=== PATIENT | female | born 1970 | race Two or more races ===

== ENCOUNTER 2024-03-30 16:59 | Emergency (ER) | payer MEDICAID, SELFPAY ==
[2024-03-30 17:01] VITALS: BMI 32.9
[2024-03-30 17:44] VITALS: BP 132/86; PULSE 91; RESP 18; TEMP 36.9; O2SAT 96
--- NOTE | 2024-03-30 17:51 | PD.EDRME ---
Rapid Medical Screening Exam RME Arrival date/time: 03/30/24 16:59 This is a 54-year-old female presents the emergency department with complaints of dizziness recently has had nausea vomiting diarrhea patient feels dehydrated. I have greeted and performed a focused initial assessment of this patient. Initial appropriate labs ordered at this time. A comprehensive ED assessment and evaluation of the patient and analysis of all test and completion of medical decision making process will be conducted by additional ED provider. Chief Complaint: Dizziness Time Seen by Provider: 03/30/24 17:42 Vital signs: Vital Signs Temperature 98.5 F 03/30/24 17:44 Pulse Rate 91 03/30/24 17:44 Respiratory Rate 18 03/30/24 17:44 Blood Pressure 132/86 H 03/30/24 17:44 Pulse Oximetry (%) 96 03/30/24 17:44 Oxygen Delivery Method Room Air 03/30/24 17:44
[2024-03-30 18:03] LABS: Basophils # (Auto) 0.1 Thou/mm3 (0.0-0.2); Basophils % (Auto) 1 % (0-2.5); Eosinophils # (Auto) 0.1 Thou/mm3 (0.0-0.5); Eosinophils % (Auto) 1 % (0-10); Hematocrit 45.8 % (36.0-46.0); Immature Granulocytes % (Auto) 0 % (0-0); Immature Granulocytes Auto 0.03 Thou/mm3 (0.00-0.00); Lymphocytes # (Auto) 2.4 Thou/mm3 (1.0-4.8); Lymphocytes % (Auto) 21 % (10-50); Mean Corpuscular HGB Conc 34.9 g/dl (31.0-37.0); Mean Corpuscular Hemoglobin 30.6 pg (25.0-35.0); Mean Corpuscular Volume 88 fL (80-100); Monocytes # (Auto) 0.9 Thou/mm3 (0.0-0.8); Monocytes % (Auto) 8 % (0-12); Neutrophils # (Auto) 8.3 Thou/mm3 (1.8-7.7); Neutrophils % (Auto) 70 % (37-80); Nucleated Red Blood Cell % 0 /100 WBC (0); Platelet Count 272 Thou/mm3 (140-440); RDW Standard Deviation 41.2 fL (36.4-46.3); Red Blood Count 5.23 Miln/mm3 (4.00-5.20); White Blood Count 11.7 Thou/mm3 (3.6-11.0)
[2024-03-30 18:31] LABS: Alanine Aminotransferase 52 U/L (10-49); Albumin/Globulin Ratio 1.5 (1.2-2.2); Alkaline Phosphatase 127 U/L (46-116); Anion Gap 11 (7-16); Aspartate Amino Transferase 41 U/L (0-34); BUN/Creatinine Ratio 29 Ratio (12-20); Blood Urea Nitrogen 38 mg/dL (9-23); Calcium 9.9 mg/dL (8.3-10.6); Calcium (Corrected) 9.9 mg/dL (8.5-10.1); Carbon Dioxide 32.8 mMol/L (20.0-31.0); Chloride 95 mMol/L (98-107); Creatinine (Component) 1.3 mg/dL (0.6-1.3); Globulin 3.3 gm/dL (2.3-3.5); Glucose 125 mg/dL (74-106); Lipase 60 U/L (12-53); Osmolality,Calculated 287 (275-295); Potassium 3.5 mMol/L (3.4-5.1); Sodium 139 mMol/L (136-145); Total Protein 8.3 gm/dL (5.7-8.2); eGFR 49 See Note
[2024-03-30 18:44] LABS: Collection Type, Urine Clean Catch
[2024-03-30 18:55] LABS: HCG Qualitative,Urine Negative
[2024-03-30 18:59] LABS: Bilirubin,Urine Negative (Negative); Blood,Urine 1+ (Negative); Clarity,Urine Clear (Clear/Hazy); Color,Urine Yellow (Lt Yel-Yel); Glucose, Urine Negative (Negative); Hyaline Casts,Urine < 1 /hpf (0-1); Ketones,Urine Negative (Negative); Leukocyte Esterase,Urine Positive (Negative); Nitrite,Urine Negative (Negative); Protein,Urine 2+ (Neg - Trace); RBC,Urine 2 /hpf (0-3); Specific Gravity,Urine 1.023 (1.001-1.035); Squamous Epithelial Cell,Urine 2 /hpf (0-5); Urobilinogen,Urine Negative mg/dL (0.0-1.0); WBC,Urine 6 /hpf (0-5)
[2024-03-30] MEDS: SODIUM CHLORIDE 0.9% 1000 ML 1,000 ML 999 ML IV (20:44)
--- NOTE | 2024-03-30 21:13 | PD.EDDIZZY ---
ED Dizzyness RME/HPI General Chief Complaint: Dizziness Stated Complaint: Syncopal episode, dizziness, chills, NV Time Seen by Provider: 03/30/24 17:42 Arrival date/time: 03/30/24 16:59 RME / HPI RME / HPI Narrative: 03/30/24 16:59 This is a 54-year-old female presents the emergency department with complaints of dizziness recently has had nausea vomiting diarrhea patient feels dehydrated. I have greeted and performed a focused initial assessment of this patient. Initial appropriate labs ordered at this time. A comprehensive ED assessment and evaluation of the patient and analysis of all test and completion of medical decision making process will be conducted by additional ED provider. Dr. Teixeira?s Main ED Evaluation: 54yo female with a history of HTN presents to the ED for complaints of N/V/D x today. Patient states she's been having pmxgmike-vh-efnobk RLQ pain today, along with significant N/V/D. She states she was seen at [facility] and was told to come in for evaluation. Patient denies any fever, chills, UTI symptoms or any other associated symptoms. Denies any previous abdominal surgeries. No known allergies. Related Data Home Medications ?Medication ?Instructions ?Recorded ?Confirmed lisinopril 20 mg tablet 20 mg PO BID 02/15/18 01/14/23 Previous Rx's ?Medication ?Instructions ?Recorded cyclobenzaprine 5 mg tablet 5 mg PO Q8H PRN muscle spasm #20 02/22/19 tabs diclofenac sodium 75 mg 75 mg PO BID #20 tabs 02/22/19 tablet,delayed release psyllium husk 3 gram/5.4 gram oral 1 tbsp PO QDAY #284 grams 08/01/20 powder naproxen 500 mg tablet 500 mg PO BID PRN pain #30 tabs 10/24/22 famotidine 20 mg tablet (Pepcid) 20 mg PO QDAY 7 days #7 tabs 03/31/24 loperamide 2 mg-simethicone 125 mg 1 tab PO Q3H PRN loose stool #20 03/31/24 tablet (Anti-Diarrheal tabs (loperamide) - Anti-Gas) ondansetron 4 mg disintegrating 4 mg PO Q6H PRN nausea and 03/31/24 tablet vomiting #14 tabs Allergies Allergy/AdvReac Type Severity Reaction Status Date / Time No Known Allergies Allergy Verified 01/14/23 11:52 Review of Systems Review of Systems Systems Reviewed: All systems reviewed, normal except as documented Past Medical History Past Medical History CARDIAC: Positive Hypertension; Negative Congestive Heart Failure RESPIRATORY: Negative Chronic Obstructive Pulmonary Disease (COPD) GENITOURINARY: Negative Renal Disease ENDOCRINE: Negative Diabetes Mellitus Type 1 or Diabetes Mellitus Type 2 Social History SMOKING STATUS: Never smoker ED Exam Narrative Physical exam: GENERAL APPEARANCE: alert and oriented x 4, well-developed, well-nourished, no acute distress VITALS: All vitals were reviewed and the pulse ox is 96% on room air, which is normal according to my interpretation. HEENT: Normocephalic, atraumatic; pupils equal, round, reactive to light; EOMI; mucous membranes pink, moist; oropharynx clear NECK: Supple LUNGS: CTABL; no wheezes, no rales, no rhonchi HEART: Regular rate, regular rhythm; normal S1, S2; no murmurs ABDOMEN: non distended; normal BS; soft, whwydavd-ew-uziqiv RLQ tenderness over McBurney's point, voluntary guarding, no rebound; no masses, no organomegaly, no hernia BACK: no CVA tenderness EXTREMITIES: atraumatic; no edema NEUROLOGIC: awake; alert and oriented x4; cranial nerves II-XII grossly intact; no focal sensory or motor deficits PSYCHIATRIC: appropriate mood and affect SKIN: warm, dry, normal color; no rashes Course Quality Measures none Orders Category Date Time Status Bedside Influenza A&B Antigen Test NOW Care 03/30/24 17:[address] Screening NOW Care 03/30/24 21:19 Completed Insert IV NOW Care 03/30/24 17:[address] abdomen pelvis w con Stat Exams 03/30/24 21:18 Completed CBC Stat Lab 03/30/24 17:57 Completed Comprehensive Metabolic Panel Stat Lab 03/30/24 17:57 Completed HCG Qualitative,Urine Stat Lab 03/30/24 18:37 Completed Lipase Stat Lab 03/30/24 17:57 Completed Urinalysis Stat Lab 03/30/24 18:37 Completed HYDROmorphone INJ [Dilaudid Inj] Med 03/30/24 21:30 Discontinued 0.5 mg IVP Q30MIN PRN Ondansetron Inj [Zofran Inj] Med 03/30/24 21:18 Discontinued 4 mg IV X1 ONE Sodium Chloride 0.9% 1000 ml [Ns] 1,000 ml Med 03/30/24 17:50 Discontinued IV 999 mls/hr Vital Signs Vital signs: Vital Signs Temperature 98.5 F 03/30/24 17:44 Pulse Rate 91 03/30/24 17:44 Respiratory Rate 18 03/30/24 17:44 Blood Pressure 132/86 H 03/30/24 17:44 Pulse Oximetry (%) 96 03/30/24 17:44 Oxygen Delivery Method Room Air 03/30/24 17:44 Dizziness MDM Narrative MDM Narrative:: Scribe Attestation: 03/30/24 - Magda Knight am scribing for and in the presence of Dr. Teixeira. Patient data External records reviewed:: [facility] previous records (Per chart review, patient was seen here on 10/24/22 for ankle sprain and strain.) Clinical information provided by:: patient Social determinants that could affect healthcare access:: none Patient has the following chronic illnesses:: HTN How is presenting disease/condition affected by chronic disease/condition?: uneffected by Evaluation data The following diagnostics were reviewed and interpreted by me:: lab results and radiology exam(s) Lab and/or radiology exams considered but not ordered:: none Interpretation Summary: WBC count is slightly elevated at 11.7, BUN is 38, Lipase is 60, UA is unremarkable, HCG is negative, Bedside Influenza is negative, according to my interpretation. ------- [facility] Report Signed Patient: MAX HOANG [facility]. Record#: [id number] Birthdate: 1970 Age/Sex: 54 / F Location: [facility] Attending Dr: Ordering Physician: Abdullahi Teixeira MD Date of Service: 03/30/24 Procedure(s): CT abdomen pelvis w con Accession Number(s): [id number] cc: Johnny Holder MD; NO PRIMARY/FAMILY,PHYSICIAN; Abdullahi Teixeira MD~ Examination: CT abdomen with intravenous contrast CT pelvis with intravenous contrast 2-D coronal reconstructions 2-D sagittal reconstructions Date and time of exam:March 30, 2024 10:43 PM Indications: Right lower abdominal pain onset today. CTDI: vol (mGy) 10.5 DLP: (mGycm) 583 Technique: Multiple axial sections of the abdomen and pelvis have been obtained. 64 slice high-resolution scanner used. 3 mm axial sections have been obtained, post intravenous injection 60 cc [id number] 2-D sagittal, coronal reconstructions obtained. Low dose protocols were performed. One or more of the following dose reduction techniques were used; automated exposure control, adjustment of the mA and/or KV according to patient size, use of iterative reconstruction technique. Findings: No focal liver or splenic lesion Absent gallbladder No pancreatic or adrenal mass No renal or ureteral calculi, no hydronephrosis Aorta normal size No pericecal inflammatory change, the appendix is not diagnostically visualized 28 x 22 mm possible mass in the ascending colon, coronal image 72 Mild fluid distended small bowel loops in the lower abdomen axial image 129 No diverticulitis Atrophic uterus No adnexal mass Urinary bladder intact Old fracture deformities left superior inferior pubic ramus Hips intact Impression: No renal or ureteral calculi, no hydronephrosis No CT findings of appendicitis or diverticulitis Recommend elective colonoscopy follow-up to exclude early mass in the ascending colon, coronal image 72 Dictated By: Johnny Holder MD Signed By: <Electronically signed by Johnny Holder MD in OV> 03/31/24 0005 Medications / Prescriptions Medications or Prescriptions considered but not ordered:: none Medication administrations:: Medication Administration History Discontinued Medications Hydromorphone HCl (Hydromorphone Inj 2 Mg/Ml Vial) 0.5 mg IVP Q30MIN PRN PRN Reason: PAIN Stop: 04/04/24 21:29 Last Admin: 03/30/24 22:06 Dose: 0.5 mg Documented By: CVL Sodium Chloride (Ns) 1,000 mls @ 999 mls/hr IV .Q1H1M ONE Stop: 03/30/24 18:50 Last Infusion: 03/30/24 21:36 Dose: Infused Documented By: Admin: 03/30/24 20:44 Dose: 999 mls/hr Documented By: CVL Ondansetron HCl (Ondansetron Inj 2 Mg/Ml Inj 2 Ml) 4 mg IV X1 ONE; Protocol Stop: 03/30/24 21:19 Last Admin: 03/30/24 22:05 Dose: 4 mg Documented By: CVL see above Consultations Consultation(s) initiated? (list below): No Diagnosis Dizziness Differential Diagnosis: other (gastroenteritis, gastritis, gastroparesis) Most likely diagnosis given after review of the tests above:: see below Admission Indicated Admission indicated?: not indicated Explain why admission is indicated or not indicated:: No criteria for admission. Admission Request Was there a request for admission?: No Disposition Plan Disposition Plan: Discharge Discharge Attestation Discharge Attestation: The patient and all family members were given an opportunity to ask questions and understood the discharge instructions. Discharge instructions specifically effects, indications for sooner follow up or return to the emergency department, and the expected course of current diagnosis. Patient condition: Stable Discharge Plan Plan Patient Disposition: HOME (Self Care) Disposition Comment: Safe for discharge Patient condition on transfer: Stable Prescriptions/Referrals Prescriptions/Med Rec: New ondansetron 4 mg tablet,disintegrating 4 mg PO Q6H PRN (Reason: nausea and vomiting) Qty: 14 0RF famotidine [Pepcid] 20 mg tablet 20 mg PO QDAY 7 Days Qty: 7 0RF loperamide-simethicone [Anti-Diarrheal (axel)-Anti-Gas] 2-125 mg tablet 1 tab PO Q3H PRN (Reason: loose stool) Qty: 20 0RF Rx Instructions: do not exceed 4 tabs in 24 hrs No Action diclofenac sodium 75 mg tablet,delayed release (DR/EC) 75 mg PO BID Qty: 20 0RF cyclobenzaprine 5 mg tablet 5 mg PO Q8H PRN (Reason: muscle spasm) Qty: 20 0RF lisinopril 20 mg Tablet 20 mg PO BID psyllium husk 3 gram/5.4 gram powder 1 tbsp PO QDAY Qty: 284 0RF Rx Instructions: mix into at least 8 oz of water or juice before administering naproxen 500 mg tablet 500 mg PO BID PRN (Reason: pain) Qty: 30 0RF Referrals: [facility] [Outside] - In 1 week No Primary/Family,Physician [Primary Care Provider] - In 1 week Problem List Clinical Impression: Vomiting, Diarrhea Patient/Caregiver Discharge Instructions Discharge Activity: activity as tolerated Education Materials: Self-Care for Vomiting and Diarrhea, ED Diarrhea, Unknown Cause, ED Diet for Vomiting or ..., ED Vomiting (Adult), ED Vomiting and Diarrhea ... Additional Instructions: Please follow-up with your primary care doctor within the next several days. Return to the ER if you have any worsening or if you feel like you are not improving within the next 24 to 48 hours and we will help you. There are several medications waiting for you at your pharmacy. Please take all medications as directed Print Language: Beninese Stand Alone Forms: Esther Award Info., Patient Portal Info Letter
--- NOTE | 2024-03-30 21:18 | XR_ITS ---
Examination: CT abdomen with intravenous contrast CT pelvis with intravenous contrast 2-D coronal reconstructions 2-D sagittal reconstructions Date and time of exam:March 30, 2024 10:43 PM Indications: Right lower abdominal pain onset today. CTDI: vol (mGy) 10.5 DLP: (mGycm) 583 Technique: Multiple axial sections of the abdomen and pelvis have been obtained. 64 slice high-resolution scanner used. 3 mm axial sections have been obtained, post intravenous injection 60 cc [id number]-370 2-D sagittal, coronal reconstructions obtained. Low dose protocols were performed. One or more of the following dose reduction techniques were used; automated exposure control, adjustment of the mA and/or KV according to patient size, use of iterative reconstruction technique. Findings: No focal liver or splenic lesion Absent gallbladder No pancreatic or adrenal mass No renal or ureteral calculi, no hydronephrosis Aorta normal size No pericecal inflammatory change, the appendix is not diagnostically visualized 28 x 22 mm possible mass in the ascending colon, coronal image 72 Mild fluid distended small bowel loops in the lower abdomen axial image 129 No diverticulitis Atrophic uterus No adnexal mass Urinary bladder intact Old fracture deformities left superior inferior pubic ramus Hips intact Impression: No renal or ureteral calculi, no hydronephrosis No CT findings of appendicitis or diverticulitis Recommend elective colonoscopy follow-up to exclude early mass in the ascending colon, coronal image 72
[2024-03-30] MEDS: ONDANSETRON INJ 2 MG/ML INJ 2 ML 4 MG IV (22:05)
[2024-03-30] MEDS: HYDROmorphone INJ 2 MG/ML VIAL 0.5 MG IVP (22:06)
[2024-03-30 22:22] VITALS: BP 122/77; PULSE 67; RESP 18; TEMP 36.9; O2SAT 95
[2024-03-31 00:36] VITALS: BP 120/80; PULSE 60; RESP 16; TEMP 36.4; O2SAT 96
== END 2024-03-31 01:17 | disposition home or self-care (01) ==
PROVIDERS: Nurse Practitioner Primary Care; Emergency Provider Emergency Medicine
DX: R11.10 Vomiting, unspecified (principal); R19.7 Diarrhea, unspecified; R10.31 Right lower quadrant pain; D72.829 Elevated white blood cell count, unspecified
CPT/HCPCS: 36415; 74177; 80053; 81001; 81025; 83690; 85025; 87400; 96374; 99285; A4649; J2405; J3490; J7030; Q9967

== ENCOUNTER 2024-08-30 12:20 | Day surgery (SDC) | payer MEDICAID, SELFPAY ==
--- NOTE | 2024-08-27 18:01 | ESHP_ITS ---
RE: MAX HOANG : 1970 DATE OF ADMISSION: 08/30/2024 HISTORY OF PRESENT ILLNESS: This patient was referred and seen in the [facility]. She is referred by Linus Becker for diagnostic colonoscopy. The patient had an unusual history in the March of this year when she went to the emergency room after fainting 3 times. The workup apparently was negative; however, they did a barium enema and it showed mass in the ascending colon measuring 28 x 22 mm. Therefore, she was advised to have a colonoscopy to evaluate the mass. The patient denies any history of rectal bleeding or any history of colon cancer in the family. She has not had any fainting spells after the visit to the emergency room. She does not have any abdominal pain except over the left upper quadrant. PAST MEDICAL HISTORY: Revealed that she had history of hypertension. PAST SURGICAL HISTORY: Consisted of kidney stones on 06/14/2009 and cholecystectomy. PHYSICAL EXAMINATION: GENERAL: Revealed slightly obese female, who appeared to be in her stated age. VITAL SIGNS: The patient is 5 feet 2 inches tall, weighing 187 pounds with BMI of 34.45. Temperature is 96.9, pulse 94, and BP was 111/71. HEENT: Head normal. Eyes, ears, nose, and throat normal. NECK: Thyroid normal. LUNGS: Revealed good breath sounds on both sides. HEART: Sinus rhythm with no murmurs. ABDOMEN: Unremarkable. IMAGING: The patient had a CT scan of the abdomen for evaluation of this fainting spell and it showed mass in the ascending colon measuring 28 x 22 mm. IMPRESSION: 1. Essential hypertension. 2. Abnormal barium enema with a mass in the ascending colon. 3. Hyperlipidemia. PLAN: I advised the patient to undergo colonoscopy to evaluate the mass. The procedure was explained to her in detail using an sales driver because she only speaks Albanian. She was told that she will undergo biopsy if there is a mass and subsequent treatment if it turns out to be malignant. She is agreeable. DT: 17:35:17 TT: 17:59:00 Ref: [id number] - TID: [id number]
[2024-08-29 14:04] VITALS: BMI 33.3
[2024-08-30] VITALS (10 sets, daily range): BP systolic 106–153; BP diastolic 72–101; PULSE 64–71; RESP 12–20; TEMP 36.7–36.9; O2SAT 93–99; BMI 33.5
[2024-08-30] MEDS: RINGERS LACTATED 1000 ML 1,000 ML 100 ML IV (14:28)
[2024-08-30] MEDS: MIDAZOLAM INJ 1 MG/ML VIAL 2 ML (ASD USE ONLY) 2 MG IVP (14:32)
[2024-08-30] MEDS: fentaNYL CIT INJ 50 mCg/ML AMP 2ML (ASD USE ONLY) IVP (14:39)
== END 2024-08-30 15:36 | disposition home or self-care (01) ==
PROVIDERS: PCP Family Medicine; Referring Provider Surgery; Visit Provider Surgery
PROC: 0DBE8ZX Excision of Large Intestine, Via Natural or Artificial Opening Endoscopic, Diagnostic (ICD-10-PCS; CPT 45380; principal; 2024-08-30 13:45)
DX: D12.5 Benign neoplasm of sigmoid colon (principal); E78.5 Hyperlipidemia, unspecified; I10 Essential (primary) hypertension; Z90.49 Acquired absence of other specified parts of digestive tract
CPT/HCPCS: 45380; 81025; J2250; J3010; J7120